=== PATIENT | male | born 1985 | race Caucasian/White ===

== ENCOUNTER 2023-02-28 09:43 | Day surgery (SDC) | payer OTHER, SELFPAY ==
[2023-02-25 10:59] VITALS: BMI 34.0
[2023-02-28] VITALS (12 sets, daily range): BP systolic 102–134; BP diastolic 58–85; PULSE 49–88; RESP 12–17; TEMP 36.2–36.7; O2SAT 97–99; BMI 33.1
--- NOTE | 2023-02-28 10:11 | PM.PREOP ---
Pre-operative Note Interval Note History & Physical reviewed/Exam performed by Physician: Yes Changes to H&P: No
--- NOTE | 2023-02-28 10:11 | PM.HP.1 ---
History of Present Illness History of Present Illness Time Patient Seen: 10:11 Chief complaint: Tonsillectomy/Adenoidectomy/Uvulectomy w/Uvulopala Narrative: 37-year-old male last seen in clinic 01/09/2023 presents for schedule tonsillectomy and possible adenoidectomy along with partial uvulectomy. No interval health changes since last visit although his sleep study 05/22/2022 showed mild JULIENNE AHI 5 desaturation to 83% but exclusively during supine sleep which he tries to avoid. No recent cough cold or fever, he would like to proceed. [facility] Medical History Uvular hypertrophy Globus sensation GERD (gastroesophageal reflux disease) Tonsil stone JULIENNE on CPAP Surgical History [place] teeth extracted Hx of colonoscopy (05/10/22) H/O vasectomy Social History Smoking Status: Never smoker alcohol intake: current Meds Home Medications and Allergies Home Medications Medication Instructions Recorded Confirmed Type famotidine 40 mg tablet 40 mg PO DAILY 02/25/23 02/25/23 History pantoprazole 40 mg tablet,delayed 40 mg PO BID 02/25/23 02/25/23 History release Allergies Allergy/AdvReac Type Severity Reaction Status Date / Time No Known Drug Allergies Allergy Verified 02/25/23 11:04 Review of Systems Review of Systems Narrative: Negative except as listed in the HPI Exam Narrative Exam Narrative: Well-developed well-nourished, heart regular rate and rhythm without murmur, lungs clear to auscultation bilaterally Assessment & Plan Assessment & Plan narrative: Assessment: Chronic tonsillitis, tonsil stones, halitosis, JULIENNE, tonsillar hypertrophy, uvula hypertrophy and globus sensation Plan: Following discussion of the material risks benefits complications and alternatives, the patient elected to proceed.
--- NOTE | 2023-02-28 10:13 | P.OP_ITS ---
Operative Date/Time/Diagnoses Date of procedure: 02/28/23 Time of procedure: 12:33 Pre-op diagnosis: Chronic tonsillitis, tonsil stone, halitosis, JULIENNE, tonsillar hypertrophy, hypertrophy of uvula, globus sensation Post-op diagnosis: same Procedure & Clinicians Procedure: 1.Tonsillectomy 2. partial uvulectomy Same procedure as scheduled: Yes Indications: 37 Year old with the above diagnoses incompletely managed with medical therapy presents for the above procedure. Following discussion of the material risks benefits complications and alternatives, the patient elected to proceed. Surgeon: Alexander Duran Click Yes if Unassisted: Yes Anesthesia Type: General and Local Operative Notes Findings: Intact palate hypertrophied bifid uvula partially resected, 3+ tonsils, no adenoid tissue Estimated Blood Loss (mL): 10 Procedure in detail: Following identification and confirmation of consent the patient was brought to the operating room suite and placed in the supine position. General endotracheal anesthesia was administered. A head wrap, shoulder roll, and mouth gag were placed and a red rubber catheter was inserted through the nostril and out the mouth to retract the soft palate. No significant adenoid tissue. The left tonsil was retracted medially and suction electrocautery on a setting of 30 was used to dissect the tonsil in a subcapsular plane, followed by hemostasis with the same. This process was repeated on the right side with identical findings. The tonsillar fossae were superficially infiltrated b ilaterally with 2% lidocaine 1 100,000 epinephrine. The uvula was partially resected inferiorly of both mucosa and some muscle with needle-tip electrocautery, suction electrocautery for hemostasis of the uvular artery, then infiltrated with additional local anesthetic. Mouth gag and rubber catheter were removed and the patient was extubated in the operating room and taken to the recovery room in stable condition without known complication. Complications: none Post-operative Condition: stable Disposition: same day surgery Plan for aftercare: Push fluids, alternate Tylenol and Advil every 3 hours for baseline pain control, oxycodone for breakthrough pain. Soft diet 2 full weeks, no heavy lifting or straining 2 weeks.
[2023-02-28] MEDS: LACTATED RINGERS 1,000 ML 42 ML IV ×2 (10:14→13:56)
[2023-02-28] MEDS: ACETAMINOPHEN 325 MG TABLET 975 MG PO (10:14)
[2023-02-28] MEDS: LIDOCAINE 2% W/EPI INJ 20 ML INJ (12:12)
--- NOTE | 2023-02-28 12:13 | SUR.OPER ---
Supine on padded OR bed, head on pillow, arms secured on padded arm boards at <90 degrees abduction, legs uncrossed, safety belt at thigh, tape over blanket over lower legs.
[2023-02-28] MEDS: OXYCODONE IR 5 MG TABLET PO ×2 (12:57→13:39)
[2023-02-28] MEDS: ONDANSETRON 4 MG/2 ML INJ IV (12:59)
[2023-02-28] MEDS: METOCLOPRAMIDE 10 MG/2 ML INJ IV (13:13)
== END 2023-02-28 13:55 | disposition home or self-care (01) ==
PROVIDERS: PCP Nurse Practitioner Family; Referring Provider Otolaryngology; Visit Provider Otolaryngology
PROC: (CPT 42826; principal; 2023-02-28 10:45)
PROC: (CPT 42145; 2023-02-28 10:45)
DX: J35.01 Chronic tonsillitis (principal); J35.8 Other chronic diseases of tonsils and adenoids; G57.33 Lesion of lateral popliteal nerve, bilateral lower limbs; K13.79 Other lesions of oral mucosa
CPT/HCPCS: 42826; 42140; J1100; J2250; J2405; J2704; J2765; J3010